=== PATIENT | female | born 2000 | race Caucasian/White ===

== ENCOUNTER 2023-08-15 06:59 | Observation (INO) ==
[2023-08-15] MEDS: Ondansetron 4 mg VIAL 2 MG/ML 2 ml VIAL IV ONE ×2 (07:53→12:10)
[2023-08-15] MEDS: Lactated Ringers 1000 ml BAG 1,000 ML IV ONE (07:54)
[2023-08-15 07:55] LABS: ABS Eosinophils 0.1 10^3/uL (0.0-0.5); ABS Lymphocytes 1.9 10^3/uL (1.0-4.8); ABS Monocytes 0.3 10^3/uL (0.0-0.9); ABS Neutrophils 2.1 10^3/uL (1.5-7.6); Eosinophil % 2.9 %; Hematocrit 41.3 % (35-45); Hemoglobin 14.7 g/dL (11.5-14.3); Lymphocyte % 42.8 %; Mean Corpuscular Hemoglobin 32.2 pg (27-33); Mean Corpuscular Hgb Conc 35.5 g/dL (31-36); Mean Corpuscular Volume 90.7 fL (80-97); Mean Platelet Volume 8.7 fL (7.5-11.2); Nucleated Red Blood Cells % 0.1 %/100WBC (0.0-0.8); Platelet Count 202 10^3/uL (150-450); Red Blood Count 4.56 10^6/uL (3.63-4.92); Red Cell Distribution Width 13.4 % (12-17); White Blood Count 4.4 10^3/uL (3.8-11.8)
[2023-08-15 08:10] LABS: Urine Appearance Clear; Urine Bilirubin Negative (Negative); Urine Blood Negative (Negative); Urine Color Yellow; Urine Glucose Negative (Negative); Urine Ketones 1+ (Negative); Urine Nitrite Negative (Negative); Urine Protein Trace (Negative); Urine Specific Gravity 1.023 (1.002-1.030); Urine Urobilinogen Negative (Negative)
[2023-08-15 08:37] LABS: ALT 10 U/L (7-52); AST 12 U/L (13-39); Albumin 4.4 g/dL (3.2-5.2); Albumin/Globulin Ratio 1.8 (1-3); Alkaline Phosphatase 47 U/L (35-149); Anion Gap 14 mmol/L (2-16); Blood Urea Nitrogen 12 mg/dL (6-24); C Reactive Protein < 1.00 mg/L (<8.01); CO2 Carbon Dioxide 21 mmol/L (22-32); Calcium 9.4 mg/dL (8.6-10.3); Chloride 104 mmol/L (101-111); Globulin 2.4 g/dL (2-4); Glucose 89 mg/dL (70-100); Lipase < 10 U/L (11.0-82.0); Magnesium 1.7 mg/dL (1.9-2.7); Potassium 3.7 mmol/L (3.5-5.0); Sodium 139 mmol/L (135-145); Total Bilirubin 0.8 mg/dL (0.2-1.0); Total Protein 6.8 g/dL (6.4-8.9); eGFR CKD-EPI 126.1 (>60)
[2023-08-15 08:44] LABS: HCG Pregnancy < 0.60 mIU/mL
[2023-08-15] MEDS: Magnesium Sulfate IV 1GM/100ML 1 GM/100 ML BAG IV ONE (09:41)
[2023-08-15] MEDS: Metoclopramide 5 MG/ML VIAL (10 mg) IV SLOW PU ONE (14:02)
[2023-08-15] MEDS ORDERED: Al Hydrox/Mg Hydrox/Simet LIQ 30 ML UDC PO PRN (14:09)
[2023-08-15] MEDS ORDERED: Senna TAB 8.6 mg TAB PO PRN (14:25)
[2023-08-15] MEDS: Lactated Ringers 1000 ml BAG 1,000 ML IV SCH (15:03)
[2023-08-15 15:17] LABS: TSH Ultra Thyroid Stim Horm 1.52 mcIU/mL (0.34-5.60)
[2023-08-15 15:34] LABS: Hepatitis B Surface Antigen Nonreactive (Nonreactive)
[2023-08-15 15:40] LABS: Hepatitis A Ab IgM Negative (Negative); Hepatitis B Core IgM Nonreactive (Nonreactive)
[2023-08-15 15:52] LABS: Hepatitis C Antibody Negative (Negative)
[2023-08-15] MEDS: Acetaminophen IV 1 GM/100ML 1,000 MG/100 ML BAG IV PRN (18:25)
[2023-08-15] MEDS: Ondansetron 4 mg VIAL 2 MG/ML 2 ml VIAL IV PRN (21:55)
[2023-08-16] MEDS: Iohexol 300 (CONTRAST) 10 ML SDV IV ONE (00:42)
[2023-08-16 07:24] LABS: ABS Eosinophils 0.1 10^3/uL (0.0-0.5); ABS Lymphocytes 1.3 10^3/uL (1.0-4.8); ABS Monocytes 0.3 10^3/uL (0.0-0.9); ABS Neutrophils 2.1 10^3/uL (1.5-7.6); Eosinophil % 3.5 %; Hematocrit 38.5 % (35-45); Hemoglobin 13.4 g/dL (11.5-14.3); Lymphocyte % 32.7 %; Mean Corpuscular Hemoglobin 32.1 pg (27-33); Mean Corpuscular Hgb Conc 34.8 g/dL (31-36); Mean Corpuscular Volume 92.5 fL (80-97); Mean Platelet Volume 8.6 fL (7.5-11.2); Platelet Count 166 10^3/uL (150-450); Red Blood Count 4.16 10^6/uL (3.63-4.92); Red Cell Distribution Width 13.3 % (12-17); White Blood Count 3.9 10^3/uL (3.8-11.8)
[2023-08-16 08:02] LABS: Calcium 8.7 mg/dL (8.6-10.3); Creatinine, Serum 0.77 mg/dL (0.51-0.95); Potassium 3.9 mmol/L (3.5-5.0); eGFR CKD-EPI 112.5 (>60)
[2023-08-16 10:14] VITALS: BP 106/65
[2023-08-19 19:26] LABS: Calprotectin <50.0 mcg/g
== END 2023-08-16 14:19 | disposition home or self-care (01) ==
LOC: EDHOLD 06:59 → ED 06:59 → MED 21:16
PROVIDERS: ADMIT Internal Medicine; ATTEND Internal Medicine